=== PATIENT | female | born 1970 | race Caucasian/White ===

== ENCOUNTER 2023-02-22 17:40 | Emergency (ER) | payer BC, SELFPAY ==
[2023-02-22 17:43] VITALS: BP 86/42; PULSE 81; RESP 14; TEMP 36.1; O2SAT 99
[2023-02-22 17:57] VITALS: BP 109/70; PULSE 67; RESP 20; O2SAT 100; BMI 24.7
--- NOTE | 2023-02-22 18:01 | EDS_ITS ---
HPI <DEANNA Abernathy - Last Filed: 02/22/23 20:28> History of Present Illness Chief Complaint: Abd Pain Narrative Narrative: Presenting today with nausea, vomiting, and diarrhea that started today around 12 PM. She also reports epigastric abdominal pain. She states that she has had several episodes of vomiting and diarrhea and denies any hematemesis and blood in her stool. She denies any sick contacts or eating any undercooked foods. She has felt chilled but denies any fevers. PFSH <DEANNA Abernathy - Last Filed: 02/22/23 20:28> PFSH Medical History no medical history Home Medications ondansetron 4 mg disintegrating tablet 4 mg PO Q8H PRN PRN Nausea #10 tabs 02/22/23 [Rx Last Taken Unknown] Allergy/AdvReac Type Severity Reaction Status Date / Time clarithromycin [From Biaxin] AdvReac Nausea/Vom/ Verified 02/22/23 17:43 Diarrhea gluten AdvReac Nausea/Vom/ Verified 02/22/23 17:43 Diarrhea Social History Smoking Status: Never smoker ROS <DEANNA Abernathy - Last Filed: 02/22/23 20:28> ROS ED Constitutional Constitutional ED: Reports chills; Denies fever(s) or sweats Cardiovascular Cardiovascular: Denies chest pain or palpitations Respiratory/Chest Respiratory/Chest: Denies cough or dyspnea Gastrointestinal Gastrointestinal: Reports abdominal pain, diarrhea, nausea and vomiting; Denies constipation Genitourinary Genitourinary ED: Denies dysuria, hematuria or urinary urgency Musculoskeletal Musculoskeletal: Denies arthralgias or myalgias Integumentary Denies abscess, Abrasions or rash Neurologic Neurologic: Denies confusion, dizziness or paresthesias Psychiatric Psychiatric: Denies anxiety, depression, suicidal ideation or suicidal thoughts EXAM <DEANNA Abernathy - Last Filed: 02/22/23 20:28> Physical Exam Const Vital Signs: 02/22/23 17:43 02/22/23 17:57 02/22/23 18:44 Temperature 97 F L Temperature Source Temporal Pulse Rate 81 67 75 Respiratory Rate 14 20 H 22 H Blood Pressure 86/42 L 109/70 99/53 L Blood Pressure Mean 56 83 68 Pulse Ox 99 100 98 Oxygen Delivery Method Room Air Room Air Room Air 02/22/23 20:17 Temperature Temperature Source Pulse Rate Respiratory Rate Blood Pressure 105/55 L Blood Pressure Mean 71 Pulse Ox Oxygen Delivery Method Positive well nourished, well developed and no apparent distress General Appearance ED: well developed HEENT Reports normocephalic, head/scalp atraumatic and dry mucous membranes Mouth ED: Yes dry mucous membranes Mouth: dry mucous membranes Eyes PERRL and EOMs intact bilaterally Neck full ROM and supple Chest Wall inspection of chest normal Resp normal respiratory effort and clear to auscultation bilaterally Cardio regular rate and regular rhythm GI non-distended and no masses GI Narrative: Tenderness to palpation in the left lower quadrant as well as abdominal rigidity. Back/Spine normal ROM and normal to inspection Extremity normal to inspection and full ROM Neuro oriented x3, CN's II-XII intact bilaterally, moves all extremities, no focal motor deficits and no sensory deficits noted Sensorium / Orientation: awake and alert Psych mental status grossly normal and thought process normal Skin no rashes or lesions noted and no wounds <Dr. Yousuf Banuelos DO - Last Filed: 02/22/23 20:23> Physical Exam Const Vital Signs: 02/22/23 17:43 02/22/23 17:57 02/22/23 18:44 Temperature 97 F L Temperature Source Temporal Pulse Rate 81 67 75 Respiratory Rate 14 20 H 22 H Blood Pressure 86/42 L 109/70 99/53 L Blood Pressure Mean 56 83 68 Pulse Ox 99 100 98 Oxygen Delivery Method Room Air Room Air Room Air 02/22/23 20:17 Temperature Temperature Source Pulse Rate Respiratory Rate Blood Pressure 105/55 L Blood Pressure Mean 71 Pulse Ox Oxygen Delivery Method [facility] <DEANNA Abernathy - Last Filed: 02/22/23 20:28> [facility] Narrative Medical decision making narrative: Patient presenting today with nausea, vomiting, diarrhea that started at 12 PM today. Patient symptoms do sound like gastroenteritis, however, when performing patient's abdominal exam she had severe tenderness to her left lower quadrant and had significant abdominal rigidity with palpation to that area and yelled out in pain when I palpated there. Because of this, CT scan of the abdomen and pelvis with IV contrast will be obtained to rule out diverticulitis and other abdominal etiology. Labs to be obtained to rule out leukocytosis, anemia, electrolyte abnormality, assess kidney function, assess liver enzymes. Has been given IV fluids, Zofran, and Toradol. CT suggestive of gastroenteritis, clinically this makes sense. On reexamination patient is feeling much better but is still slightly nauseous. She has been given more Zofran and will be given p.o. fluid challenge. She will be given Zofran for home. Reexamination she is tolerating p.o. fluids. She feels much better. She will be discharged home in stable condition. She is comfortable with plan. I have personally performed a face to face assessment of the patient and have reviewed the MASSIMO Note. I performed a substantive portion of the visit including all aspects of the following. My muniz findings include: History is [patient presents the emergency department with complaint of vomiting and diarrhea that started around noon today. She states she is thrown up about 15 times and has had about 10 episodes of watery stool. Denies sick contacts. Denies eating any unusual or undercooked foods. She describes abdominal pain is somewhat diffuse and around her bellybutton. She denies urinary symptoms. She has no medical history.] Exam is HEENT-PERRLA, EOMI. Cranial nerves II through XII grossly intact. TMs clear. Mucous membranes moist. No adenopathy. Cardiovascular-regular rate and rhythm without murmur or ectopy Lungs-clear to auscultation, chest wall stable without crepitus or subcu emphysema Abdomen-normoactive bowel sounds, soft. Patient has some tenderness palpation diffusely about the abdomen. There is no rebound, rigidity, or peritoneal signs. No masses palpated. Extremities-intact ?4, normal range of motion, normal pulses, atraumatic] Medical Decison Making [patient had an IV line established and was given normal saline fluid bolus. She was given Zofran. She was ordered dicyclomine and loperamide however she refused the loperamide as she states it typically constipates her too much for days on and. She has CBC with differential that showed a slightly elevated white count of 14.8 in which I suspect this is likely reactive from the retching and vomiting. Chemistries unremarkable. LFTs were normal. Urinalysis was normal. CT scan of the abdomen pelvis obtained showed evidence for gastroenteritis otherwise no acute finding. Patient had no further vomiting in the department and was tolerating p.o. challenge. This point she will be discharged to home with diagnosis of viral gastroenteritis. Patient advised to return if persistent vomiting, diarrhea, dehydration. Patient will be given a prescription for Zofran for home.] Other additions or changes: [None] Lab Data Attestation: I reviewed the patient's lab results. Lab results narrative: WBC 14.8, neutrophil 96.5, BUN 21, lipase WNL, no acute cystitis Labs: Laboratory Results - last 24 hr 02/22/23 02/22/23 02/22/23 18:05 18:05 19:15 WBC 14.8 H RBC 4.53 Hgb 13.8 Hct 40.9 MCV 90.3 MCH 30.5 MCHC 33.7 RDW Std Deviation 44.0 H RDW Coeff of Giorgi 13.4 Plt Count 409 MPV 8.8 Immature Gran % (Auto) 0.300 Neut % (Auto) 96.5 H Lymph % (Auto) 0.5 L [place] % (Auto) 2.5 Eos % (Auto) 0.0 Baso % (Auto) 0.2 Absolute Neuts (auto) 14.3 H Absolute Lymphs (auto) 0.08 L Nucleated RBC % 0 Differential Comment SCANNED Sodium 136 Potassium 4.0 Chloride 104 Carbon Dioxide 26.0 Anion Gap 6 BUN 20 H Creatinine 0.76 Estim Creat Clear Calc 72.44 Est GFR (MDRD) Af Amer 104 Est GFR (MDRD) Non-Af 86 BUN/Creatinine Ratio 26.5 H Glucose 122 H Calcium 8.9 Total Bilirubin 0.70 AST 23 ALT 39 Alkaline Phosphatase 51 Total Protein 7.6 Albumin 3.9 Globulin 3.7 Albumin/Globulin Ratio 1.1 Lipase 112 Urine Color Yellow Urine Clarity Clear Urine pH 8.0 Ur Specific [place] 1.015 Urine Protein Negative Urine Glucose (UA) Normal Urine Ketones 150 A* Urine Occult Blood 10 H Urine Nitrite Negative Urine Bilirubin Negative Urine Urobilinogen Normal Ur Leukocyte Esterase Negative Urine RBC 0 SEEN Urine WBC 0 SEEN Ur Squamous Epith Cells 0-5 SEEN Urine Bacteria 0 SEEN Urine Mucus 0 SEEN Radiography Diagnostic Testing: Clinical Impression(s) from Imaging Studies Abdomen/Pelvis CT 02/22/23 19:08 IMPRESSION: (NOT LISTED IN ORDER OF SIGNIFICANCE) There is liquid stool in the colon. This can suggest a gastroenteritis /diarrhea. Clinical correlation is recommended. Other findings as above. Electronically Signed: Andres Villeda MD at 19:42 EDT , CT also reviewed and interpreted by attending ED physician as well as radiologist. EKG Initial EKG: Comments: EKG was ordered for protocol due to her initial presentation of hypotension. Normal sinus rhythm, 71 bpm, no ST elevation, reviewed and interpreted by attending ED physician <Dr. Yousuf Banuelos, DO - Last Filed: 02/22/23 20:23> [facility] Narrative Medical decision making narrative: Patient presenting today with nausea, vomiting, diarrhea that started at 12 PM today. Patient symptoms do sound like gastroenteritis, however, when performing patient's abdominal exam she had severe tenderness to her left lower quadrant and had significant abdominal rigidity with palpation to that area. Because of this, CT scan of the abdomen and pelvis with IV contrast will be obtained to rule out diverticulitis and other abdominal etiology. Labs to be obtained to rule out leukocytosis, anemia, electrolyte abnormality, assess kidney function, assess liver enzymes. Has been given IV fluids, Zofran, and Toradol. CT suggestive of gastroenteritis. On reexamination patient is feeling much better but is still slightly nauseous. She has been given more Zofran and will be given p.o. fluid challenge. She will be given Zofran for home. I have personally performed a face to face assessment of the patient and have reviewed the MASSIMO Note. I performed a substantive portion of the visit including all aspects of the following. My muniz findings include: History is [patient presents the emergency department with complaint of vomiting and diarrhea that started around noon today. She states she is thrown up about 15 times and has had about 10 episodes of watery stool. Denies sick contacts. Denies eating any unusual or undercooked foods. She describes abdominal pain is somewhat diffuse and around her bellybutton. She denies urinary symptoms. She has no medical history.] Exam is HEENT-PERRLA, EOMI. Cranial nerves II through XII grossly intact. TMs clear. Mucous membranes moist. No adenopathy. Cardiovascular-regular rate and rhythm without murmur or ectopy Lungs-clear to auscultation, chest wall stable without crepitus or subcu emphysema Abdomen-normoactive bowel sounds, soft. Patient has some tenderness palpation diffusely about the abdomen. There is no rebound, rigidity, or peritoneal signs. No masses palpated. Extremities-intact ?4, normal range of motion, normal pulses, atraumatic] Medical Decison Making [patient had an IV line established and was given normal saline fluid bolus. She was given Zofran. She was ordered dicyclomine and l operamide however she refused the loperamide as she states it typically constipates her too much for days on and. She has CBC with differential that showed a slightly elevated white count of 14.8 in which I suspect this is likely reactive from the retching and vomiting. Chemistries unremarkable. LFTs were normal. Urinalysis was normal. CT scan of the abdomen pelvis obtained showed evidence for gastroenteritis otherwise no acute finding. Patient had no further vomiting in the department and was tolerating p.o. challenge. This point she will be discharged to home with diagnosis of viral gastroenteritis. Patient advised to return if persistent vomiting, diarrhea, dehydration. Patient will be given a prescription for Zofran for home.] Other additions or changes: [None] Lab Data Labs: Laboratory Results - last 24 hr 02/22/23 02/22/23 02/22/23 18:05 18:05 19:15 WBC 14.8 H RBC 4.53 Hgb 13.8 Hct 40.9 MCV 90.3 MCH 30.5 MCHC 33.7 RDW Std Deviation 44.0 H RDW Coeff of Giorgi 13.4 Plt Count 409 MPV 8.8 Immature Gran % (Auto) 0.300 Neut % (Auto) 96.5 H Lymph % (Auto) 0.5 L [place] % (Auto) 2.5 Eos % (Auto) 0.0 Baso % (Auto) 0.2 Absolute Neuts (auto) 14.3 H Absolute Lymphs (auto) 0.08 L Nucleated RBC % 0 Differential Comment SCANNED Sodium 136 Potassium 4.0 Chloride 104 Carbon Dioxide 26.0 Anion Gap 6 BUN 20 H Creatinine 0.76 Estim Creat Clear Calc 72.44 Est GFR (MDRD) Af Amer 104 Est GFR (MDRD) Non-Af 86 BUN/Creatinine Ratio 26.5 H Glucose 122 H Calcium 8.9 Total Bilirubin 0.70 AST 23 ALT 39 Alkaline Phosphatase 51 Total Protein 7.6 Albumin 3.9 Globulin 3.7 Albumin/Globulin Ratio 1.1 Lipase 112 Urine Color Yellow Urine Clarity Clear Urine pH 8.0 Ur Specific [place] 1.015 Urine Protein Negative Urine Glucose (UA) Normal Urine Ketones 150 A* Urine Occult Blood 10 H Urine Nitrite Negative Urine Bilirubin Negative Urine Urobilinogen Normal Ur Leukocyte Esterase Negative Urine RBC 0 SEEN Urine WBC 0 SEEN Ur Squamous Epith Cells 0-5 SEEN Urine Bacteria 0 SEEN Urine Mucus 0 SEEN Radiography Diagnostic Testing: Clinical Impression(s) from Imaging Studies Abdomen/Pelvis CT 02/22/23 19:08 IMPRESSION: (NOT LISTED IN ORDER OF SIGNIFICANCE) There is liquid stool in the colon. This can suggest a gastroenteritis /diarrhea. Clinical correlation is recommended. Other findings as above. Electronically Signed: Andres Villeda MD at 19:42 EDT Reading Location ID and State: [facility] / [place] , Service support , Discharge Plan Triage Chief Complaint: Abd Pain ED Midlevel Provider: Carmen Teague ED Provider: Yousuf Banuelos Dx/Rx/DC Orders Clinical Impression: Gastroenteritis Instructions: ED Vomiting (Adult) Prescriptions: New ondansetron 4 mg tablet,disintegrating 4 mg PO Q8H PRN PRN (Reason: Nausea) Qty: 10 0RF Primary Care Provider: Care Physician,No Primary Referrals: Care Physician,No Primary [Primary Care Provider] - Activity Restrictions/Additional Instructions: Stay well-hydrated, return for any worsening of symptoms. Follow-up with your PCP in 5 to 7 days. Disposition Disposition: Home, Self Care
--- NOTE | 2023-02-22 18:07 | EKG12_ITS ---
Test Reason : Blood Pressure : / mmHG Vent. Rate : 071 BPM Atrial Rate : 071 BPM P-R Int : 116 ms QRS Dur : 090 ms QT Int : 432 ms P-R-T Axes : 007 056 059 degrees QTc Int : 469 ms Normal sinus rhythm Normal ECG Confirmed by SONAL CARCAMO, LOC ([id number]), news editor VINCE ROSS ([id number]) on 02/24/2023 11:18:31 AM Referred By: JOSE/AURELIANO Confirmed By:JACE PRUITT MD
[2023-02-22] MEDS: 0.9% Normal Saline 1,000 ML 999 ML IV (18:08)
[2023-02-22] MEDS: Ondansetron 4 MG/2 ML Vial IV ×2 (18:08→20:13)
[2023-02-22] MEDS: Dicyclomine 20 MG/2 ML Vial IM (18:18)
[2023-02-22 18:24] LABS: Absolute Lymphocyte Count 0.08 X10^3/uL (0.83-4.51); Absolute Neutrophil Count 14.3 X10^3/uL (2.0-7.7); Basophil# 0.03 X10^3/uL; Basophil% 0.2 % (0-1); Hematocrit 40.9 % (37-47); Hemoglobin 13.8 g/dL (12.0-15.0); Lymphocyte # 0.08 X10^3/ul (0.83-4.51); Lymphocyte % 0.5 % (19-41); Mean Corp Hgb Conc 33.7 g/dL (32-36); Mean Corpuscular Hgb 30.5 pg (27.0-32.0); Mean Corpuscular Volume 90.3 fL (81-99); Mean Platelet Vol. 8.8 fl (6.2-12.0); Monocyte# 0.37 X10^3/uL; Monocyte% 2.5 % (0-10); NRBC Flagged by Analyzer 0 % (0-5); Neutrophil % 96.5 % (47-70); POSITIVE DIFFERENTIAL YES; Platelet Count 409 K/mm3 (150-450); RBC Distribution Width CV 13.4 % (11.6-14.6); Red Blood Count 4.53 M/mm3 (4.2-5.4); White Blood Count 14.8 K/mm3 (4.4-11.0)
[2023-02-22 18:28] LABS: Differential Indicated SCAN CRITERIA MET
[2023-02-22 18:40] LABS: ALB/GLOB Ratio 1.1 RATIO (0.9-2.4); AST(SGOT) 23 U/L (15-37); Alanine Aminotransfer ALT/SGPT 39 U/L (13-56); Albumin, Serum 3.9 g/dL (3.2-5.0); Alkaline Phosphatase 51 U/L (45-117); Anion Gap 6 (5-15); BUN 20 mg/dL (7-18); BUN/Creat Ratio 26.5 RATIO (10-20); Calcium,Total 8.9 mg/dL (8.5-10.1); Chloride 104 mmol/L (98-107); Creatinine, Serum 0.76 mg/dL (0.55-1.02); EST Glomerular Filtration Rate 86 mL/min (>60); Est Glom Filt Rate - Afr Amer 104 mL/min (>60); Estimated Creatinine Clearance 72.44 ml/min; Globulin 3.7 g/dL (2.2-4.2); Glucose 122 mg/dL (74-106); Lipase 112 U/L (73-393); Protein, Total 7.6 g/dL (6.4-8.2); Sodium Level 136 mmol/L (136-145)
[2023-02-22 18:44] VITALS: BP 99/53; PULSE 75; RESP 22; O2SAT 98
[2023-02-22 19:06] LABS: Differential Comment SCANNED
--- NOTE | 2023-02-22 19:08 | CT_ITS ---
STUDY: CT Abdomen And Pelvis W/ Contrast Injection 02/22/2023 7:39 PM REASON FOR EXAM: Female, 52 years old. ABDOMINAL PAIN LLQ pain and tenderness TECHNIQUE: Transaxial images were obtained without oral contrast, and with IV 100mL [id number]-[id number] intravenous contrast. Individualized dose optimization techniques were used for this CT. COMPARISON: None. FINDINGS: The visualized lung bases are unremarkable. The visualized portions of the heart are within normal limits. 4mm hypodense area in the right lobe of the liver. ACR White Paper guidelines (Wilson, et al. JACR 2017; 14(11):8016-6791.) suggest the following. For patients with low risk of malignancy, no further follow-up is necessary. For patients with high risk of malignancy (known malignancy with a propensity to metastasize to the liver, cirrhosis, and/or other hepatic risk factors), recommend follow-up abdominal CT or MR in 6 months. Unremarkable gallbladder and extrahepatic biliary system. Unremarkable spleen. Unremarkable pancreas. Unremarkable bilateral adrenal glands. No acute findings of the right kidney. No acute findings of the left kidney. Unremarkable visualized stomach. Unremarkable small intestine. There is liquid stool in the colon. This can suggest a gastroenteritis /diarrhea. Clinical correlation is recommended. The appendix is visualized and appears unremarkable. There are no acute findings of the abdominal aorta. Unremarkable inferior vena cava. Subcentimeter mesenteric lymph nodes. Unremarkable urinary bladder. Normal visualized uterus. There is an umbilical hernia containing fat. Unremarkable osseous structures. CT/Abdomen/Pelvis W IV Cont ONLY IMPRESSION: (NOT LISTED IN ORDER OF SIGNIFICANCE) There is liquid stool in the colon. This can suggest a gastroenteritis /diarrhea. Clinical correlation is recommended. Other findings as above. Electronically Signed: Andres Villeda MD at 19:42 EDT ,
[2023-02-22 19:38] LABS: Bacteria 0 SEEN /hpf (None Seen); Mucous, Urine 0 SEEN /hpf (<or=2+); Red Blood Cells-Urine 0 SEEN /hpf (0-5); White Blood Cells 0 SEEN /hpf (0-5)
[2023-02-22 19:39] LABS: Color, Urine Yellow (Yellow); Glucose, Dipstick Normal (Normal); Leukocyte Esterase-Dipstick Negative /ul (Negative); Nitrite-Dipstick Negative (Negative); Occult Blood-Urine 10 /ul (Negative); Protein-Dipstick Negative (Negative); Specific Gravity, Urine 1.015 (1.002-1.030); Urine Bilirubin Dipstick Negative (Negative); Urine Clarity Clear (Clear); Urine Urobilinogen Normal (Normal)
[2023-02-22 19:46] LABS: Ketone-Dipstick 150 mg/dl (Negative)
[2023-02-22 19:51] LABS: Squamous Epithelial Cells - UA 0-5 SEEN /hpf (5-10)
[2023-02-22 20:17] VITALS: BP 105/55
== END 2023-02-22 20:31 | disposition home or self-care (01) ==
PROVIDERS: Physician Assistant; Emergency Provider Emergency Medicine; Visit Provider Emergency Medicine
DX: K52.9 Noninfective gastroenteritis and colitis, unspecified (principal)
CPT/HCPCS: 74177; 80053; 81001; 83690; 85025; 93005; 96361; 96372; 96374; 96375; 99284; J7030; Q9967; A4216; J2405

== ENCOUNTER 2023-10-12 09:21 | Emergency (ER) | payer BC, SELFPAY ==
[2023-10-12 09:21] VITALS: BP 121/70; PULSE 58; RESP 16; TEMP 35.3; O2SAT 98; BMI 25.3
--- NOTE | 2023-10-12 09:29 | RAD_ITS ---
STUDY: X-RAY - LEFT CLAVICLE REASON FOR EXAM: Female, 52 years old. Pain TECHNIQUE: 2 view(s) of the clavicle. COMPARISON: No relevant prior comparison study available FINDINGS: Normal clavicle. Normal acromioclavicular articulation. Normal visualized sternoclavicular articulation. Normal visualized pulmonary apex. RAD/Clavicle IMPRESSION: Normal x-ray examination of the clavicle. Electronically Signed: Indira Gutierres MD at 9:46 EST ,
--- NOTE | 2023-10-12 10:19 | EDS_ITS ---
HPI History of Present Illness HPI Narrative: Neuro left upper chest and sterno clavicular region after lifting her arm to get dressed the other day. Denies any fall or trauma. No prior history. She is right-hand dominant. Chief Complaint: Upper Extremity Injury Informant: patient Occured/Mechanism Mechanism/Context: Yes injury Onset/Context/Timing Onset: Days Context: Sudden Onset Timing: Continuous Current Severity: Moderate Maximum Severity: Moderate Associated Symptoms Associated Symptoms: Negative for Parasthesia, Weakness or Loss of Funtion Narrative Narrative: 52-year-old [id number] female injured her left upper chest wall and sternoclavicular joint region of her chest while lifting her arm. Undershorts the other day. No prior history. No prior surgery. No falls or trauma. Prior similar symptoms: No Recent Illness/Hospitalization: No PFSH PFSH Home Medications ondansetron 4 mg disintegrating tablet 4 mg PO Q8H PRN PRN Nausea #10 tabs 02/22/23 [Rx Last Taken Unknown] Allergy/AdvReac Type Severity Reaction Status Date / Time clarithromycin [From Biaxin] AdvReac Nausea/Vom/ Verified 02/22/23 17:43 Diarrhea gluten AdvReac Nausea/Vom/ Verified 02/22/23 17:43 Diarrhea Social History Smoking Status: Never smoker ROS ROS ED ROS Narrative Denies recent illness. Review of Systems ROS Unobtainable: Denies due to encephalopathy Constitutional Constitutional ED: Denies chills or fever(s) Eyes Eyes: Denies blurry vision ENT ENT ED: Denies ear pain Cardiovascular Cardiovascular: Denies chest pain Respiratory/Chest Respiratory/Chest: Denies cough or dyspnea Gastrointestinal Gastrointestinal: Denies abdominal pain Genitourinary Genitourinary ED: Denies dysuria Musculoskeletal Musculoskeletal: Denies back pain Integumentary Denies abscess Neurologic Neurologic: Denies headache(s) Psychiatric Psychiatric: Denies anxiety Endocrine Endocrinology: Denies cold intolerance Hematologic/Lymphatic Hematologic/Lymphatic: Denies easy bleeding or easy bruising Allergic/Immunologic Allergic/Immunologic ED: Denies mouth swelling or tongue swelling EXAM Physical Exam Narrative Exam Narrative: 52-year-old female no acute distress vital signs stable afebrile. HEENT exam unremarkable. Neck nontender. Lungs clear to auscultation bilaterally. Heart regular rhythm no murmur. Chest wall she has reproducible chest wall pain anterior chest near the sternum no clavicular joint region. No redness or warmth. No swelling. Increased pain with range of motion of the shoulder. Abdomen soft nontender. Left shoulder is nontender. Nonswollen. Not red. No signs of trauma. 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 Normal radial pulse. Normal flexion extension of the wrist and elbow. Decreased range of motion of the shoulder due to pain at the left medial chest wall and sterno clavicular joint area. Distant with a chest wall strain and sprain of the sternoclavicular joint. Const Vital Signs: 10/12/23 09:21 Temperature 95.6 F L Temperature Source Temporal Pulse Rate 58 L Respiratory Rate 16 Blood Pressure 121/70 H Blood Pressure Mean 87 Pulse Ox 98 Oxygen Delivery Method Room Air Positive well nourished and well developed; Negative for obese, cachectic, contractures or unkempt General Appearance ED: well developed and NAD; Negative for unkempt, cachectic, contractures, cyanotic or diaphoretic Nutritional Appearance: Negative for cachectic or obese HEENT Reports moist mucous membranes normocephalic and atraumatic; Negative for trauma or tenderness Eyes EOMs intact bilaterally General Eye ED: Negative for other Neck full ROM and supple General: Negative for tenderness Lymph Lymphatic: Negative for other Chest Wall inspection of chest normal; Negative for palpation of chest normal Chest Narrative: Tenderness of the left anterior chest wall primarily at the left sternal clavicular joint area. Resp normal respiratory effort and clear to auscultation bilaterally Effort and Inspection: Negative for pain with movement Auscultation: Negative for rales, rhonchi or wheezes Cardio regular rate, regular rhythm, S1 normal heart sound, S2 normal heart sound and no murmurs Rate: Negative for bradycardia Rhythm: Negative for abnormal rhythm GI non-tender, non-distended and no masses Inspection: Negative for abdominal distention Auscultation: normoactive bowel sounds Palpation: soft; Negative for tender or guarding Bladder / Kidney Exam: No other Back/Spine no CVA tenderness General Back: Negative for CVA tenderness Cervical Spine: Negative for cervical spine tenderness Thoracic Spine / Upper Back: Negative for thoracic spinal tenderness Lumbar Spine / Lower Back: Negative for lumbar spinal tenderness Extremity normal to inspection and full ROM Extremity Narrative: Limited range of motion of the left shoulder due to pain at the left sternal clavicular joint. Shoulder itself is nontender. Not swollen. Not warm. General Extremety ED: Negative for edema or other findings General Extremity: Negative for edema or other findings Neuro oriented x3, CN's II-XII intact bilaterally, moves all extremities, no focal motor deficits and no sensory deficits noted Sensorium / Orientation: alert, oriented to person, oriented to place and oriented to time; Negative for orientation impaired, lethargic or stuporous Motor Exam: strength 5/5 throughout Psych mental status grossly normal Appearance: Negative for unkempt Attitude: No agitated Mood & Affect: Negative for depressed, anxious or tearful Skin General Skin Exam: Negative for petechiae Lesions: no lesions Rashes: no rashes Trauma: no lacerations or abrasions MDM MDM MDM Narrative Medical decision making narrative: 52-year-old with chest wall strain and strain of the left sternoclavicular joint. X-rays are unremarkable. Ice. Rest. Motrin. Lab Data Lab results narrative: X-ray of the left clavicle, shoulder is unremarkable. 2 views interpreted both by myself and the radiologist. Radiography Diagnostic Testing: Clinical Impression(s) from Imaging Studies Clavicle X-Ray 10/12/23 09:29 IMPRESSION: Normal x-ray examination of the clavicle. Electronically Signed: Indira Gutierres MD at 9:46 EST , Discharge Plan Triage Chief Complaint: Upper Extremity Injury ED Provider: Kai Mcdonald Dx/Rx/DC Orders Clinical Impression: Sprain of left sternoclavicular joint, Muscle strain of anterior chest wall Instructions: Self-Care for Strains and Sprains, ED Chest Wall Strain Prescriptions: No Action ondansetron 4 mg tablet,disintegrating 4 mg PO Q8H PRN PRN (Reason: Nausea) Qty: 10 0RF Primary Care Provider: Care Physician,No Primary Referrals: Gustavo Beltran MD [Med Staff - Active Staff] - 1 Week if not improving Care Physician,No Primary [Primary Care Provider] - Activity Restrictions/Additional Instructions: Strain the muscles of your chest wall and the left sternoclavicular joint. Ice to the area. Rest. Return for pain and swelling and Tylenol for pain. We will increase activity once the pain is improving. If its not progressively get better in 1 to 2 weeks follow-up with a local orthopedic physician. Disposition Disposition: Home, Self Care
[2023-10-12 10:22] VITALS: RESP 16
== END 2023-10-12 10:25 | disposition home or self-care (01) ==
PROVIDERS: Emergency Provider Emergency Medicine; Visit Provider Emergency Medicine
DX: S29.011A Strain of muscle and tendon of front wall of thorax, initial encounter (principal); S43.62XA Sprain of left sternoclavicular joint, initial encounter; X50.9XXA Other and unspecified overexertion or strenuous movements or postures, initial encounter; Y93.89 Activity, other specified
CPT/HCPCS: 73000; 99282

== ENCOUNTER 2023-10-14 12:49 | Emergency (ER) | payer BC, SELFPAY ==
[2023-10-14 12:50] VITALS: BP 115/61; PULSE 64; RESP 14; TEMP 36.2; O2SAT 98; BMI 25.4
--- NOTE | 2023-10-14 13:05 | EDS_ITS ---
<Statement entered by Aliza Camacho MD - 10/14/23 15:06> I have personally performed a face to face assessment of the patient and have reviewed the MASSIMO Note. Patient presents secondary to left anterior chest wall pain. Patient states that she started lifting about 3 weeks ago. Last week she noted pain over the left anterior chest wall near the clavicle. She was seen in the emergency room and had x-rays of her clavicle which were unremarkable. Patient states pain continues and now progresses down toward the breast. Pain does not go down her arm. There was no direct trauma to her chest or arm. Patient sitting upright in bed in no acute distress. Head and neck examination unremarkable. Heart is regular rate and rhythm. Lung sounds are clear. Left anterior chest wall tenderness is noted. No crepitus. Extremity examination reveals strong distal pulses with good range of motion. Patient given anti-inflammatories and Lidoderm patch. Two-view chest x-ray o btained along with a left shoulder series. Per my interpretation no acute abnormalities noted on chest x-ray or shoulder x-ray. Radiology interpretation is reviewed and agrees. Patient will follow with PCP for possible referral to physical therapy. Return instructions given. HPI History of Present Illness Chief Complaint: Upper Extremity Injury Narrative Narrative: 52-year-old female presents with left sided chest wall pain. She states she is very active and lifts at the gym. She had no known injury but it started hurting about 3 days ago under her left clavicle. It is worse with movement of the left arm especially the shoulder joint. She has no radicular pain. No weakness, numbness or tingling. No shortness of breath or cough. No exertional pain. She was seen here and had a normal clavicle x-ray and has been taking Tylenol and ibuprofen which helps for an hour or 2 but then it returns. [facility] Medical History (Updated 10/14/23 @ 14:08 by Mee Adamson) Shoulder injury Home Medications ondansetron 4 mg disintegrating tablet 4 mg PO Q8H PRN PRN Nausea #10 tabs 02/22/23 [Rx Last Taken Unknown] Allergy/AdvReac Type Severity Reaction Status Date / Time clarithromycin [From Biaxin] AdvReac Nausea/Vom/ Verified 02/22/23 17:43 Diarrhea gluten AdvReac Nausea/Vom/ Verified 02/22/23 17:43 Diarrhea Social History Smoking Status: Never smoker ROS ROS ED ROS Narrative Constitutional: Negative for fever, chills, malaise. CVS: Negative for palpitations, syncope. Respiratory: Negative for shortness of breath, cough, orthopnea. Neuro: Negative for motor/sensory dysfunction. EXAM Physical Exam Narrative Exam Narrative: CONST: Patient sitting in no acute distress. EYES: Normal inspection. NECK: Normal inspection. RESP: No respiratory distress, CTAB. Tender to palpation over the left chest wall under the clavicle, no deformity or crepitus, no skin changes. Normal appearance of the extremities. Reproducible pain with movement of the left shoulder, full ROM, 5/5 strength, normal sensation, 2+ DP pulse. Back: Normal inspection, no midline tenderness. SKIN: Color normal, no rash, warm, dry, intact. NEURO: Oriented x4. PSYCH: Normal affect. Const Vital Signs: 10/14/23 12:50 Temperature 97.1 F L Temperature Source Temporal Pulse Rate 64 Respiratory Rate 14 Blood Pressure 115/61 Blood Pressure Mean 79 Pulse Ox 98 Oxygen Delivery Method Room Air MDM MDM MDM Narrative Medical decision making narrative: Patient has left anterior chest wall pain over the last 4 days. She appears well nontoxic. Vital signs within normal limits. Normal cardiopulmonary exam. She has reproducible tenderness under the left clavicle and with movement of the left shoulder. She is not tender over the AC joint or bicipital groove. She has full range of motion and is neurovascularly intact. Since at her prior visit the only did a clavicle x-ray, a chest x-ray and left shoulder film were ordered which showed no acute findings. Her history and physical are consistent with a muscle strain and she was treated with IM Toradol and a lidocaine patch. I recommended ice and continued OTC pain relievers and she was discharged in stable condition. ED attending interpretation of 2-view chest x-ray shows normal heart size, no evidence of rib fracture or pneumothorax. ED attending interpretation of left shoulder shows no fracture dislocation. Discharge Plan Triage Chief Complaint: Upper Extremity Injury ED Midlevel Provider: Chela La ED Provider: Aliza Camacho Dx/Rx/DC Orders Clinical Impression: Muscle strain of anterior chest wall Instructions: ED Chest Wall Strain Prescriptions: No Action ondansetron 4 mg tablet,disintegrating 4 mg PO Q8H PRN PRN (Reason: Nausea) Qty: 10 0RF Primary Care Provider: Care Physician,No Primary Referrals: Care Physician,No Primary [Primary Care Provider] - Activity Restrictions/Additional Instructions: The x-rays of your chest and shoulder are within normal limits. Recommend continue ice, rest, and alternate Tylenol 1000 mg and ibuprofen 600 mg every 3 hours. Disposition Disposition: Home, Self Care
[2023-10-14] MEDS: Lidocaine 5% Patch 1 PATCH TOPICAL (13:23)
[2023-10-14] MEDS: Ketorolac 15 MG/ML Vial IM (13:25)
--- NOTE | 2023-10-14 13:33 | RAD_ITS ---
EXAM: XR CHEST, 2 VIEWS CLINICAL INDICATION: pain TECHNIQUE: Frontal and lateral views of the chest. COMPARISON: No relevant prior studies available. FINDINGS: LUNGS AND PLEURAL SPACES: Unremarkable. No consolidation or edema. No pneumothorax. No effusion. HEART: Unremarkable. Cardiac silhouette not enlarged. MEDIASTINUM: Central airways and mediastinal contour are unremarkable. BONES/JOINTS: Unremarkable. No acute fracture. SOFT TISSUES: Unremarkable. RAD/Chest PA and Lateral IMPRESSION: No radiographic evidence of acute cardiopulmonary disease. Electronically Signed: Anton Weber MD at 13:51 EST ,
--- NOTE | 2023-10-14 13:33 | RAD_ITS ---
EXAM: XR LEFT SHOULDER COMPLETE, 2 OR MORE VIEWS CLINICAL INDICATION: pain TECHNIQUE: Two or more views of the left shoulder. COMPARISON: No relevant prior studies available. FINDINGS: BONES/JOINTS: Unremarkable. No acute fracture. No subluxation. Normal alignment. Preservation of the joint space. No sclerotic or destructive changes observed. SOFT TISSUES: Unremarkable. No soft tissue swelling or gas. No radiopaque foreign body. RAD/Shoulder min 2 Views IMPRESSION: Negative left shoulder x-rays. Electronically Signed: Anton Weber MD at 13:51 EST ,
== END 2023-10-14 14:41 | disposition home or self-care (01) ==
LOC: ED 14:18
PROVIDERS: Emergency Provider Emergency Medicine; Visit Provider Emergency Medicine
DX: S29.011A Strain of muscle and tendon of front wall of thorax, initial encounter (principal); X50.0XXA Overexertion from strenuous movement or load, initial encounter; Y93.89 Activity, other specified
CPT/HCPCS: 71046; 73030; 96372; 99282